=== PATIENT | female | born 1975 | race Caucasian/White ===

== ENCOUNTER 2020-06-07 19:38 | Emergency (ER) | payer OTHER ==
[2020-06-07 20:38] LABS: Absolute Lymphocytes (CBC) 1.7 K/uL (0.7-4.9); Basophils % 0.6 % (0-1.3); Hematocrit 38.9 % (36.0-45.0); Lymphocytes % 26.9 % (15.3-44.8); RBC Red Blood Cell Count 4.25 M/uL (3.86-4.86)
[2020-06-07 20:44] LABS: Albumin 3.7 g/dL (3.4-5.0); Bilirubin Direct 0.3 mg/dL (0-0.2); Bilirubin Total 1.3 mg/dL (0.2-1.0); Potassium 3.8 mmol/L (3.5-5.1); Protein, Total 7.2 g/dL (6.4-8.2)
[2020-06-07] MEDS ORDERED: ONDANSETRON 4 MG/2 ML VIAL ONE (21:12)
[2020-06-07] MEDS ORDERED: NA CHLORIDE 0.9% 1,000 ML ONE (21:12)
[2020-06-07] MEDS ORDERED: FENTANYL CITR 100 MCG/2 ML ONE (21:12)
[2020-06-07] MEDS ORDERED: KETOROLAC 30 MG/ML INJ ONE (21:35)
[2020-06-07 21:57] LABS: Calcium Oxalate Crystals- Ur FEW (NONE SEEN); Urine Bacteria 20-50 /HPF (<20); Urine Culture Reflex Order REFLEXED; Urine Mucus 3+ /HPF (NONE SEEN); Urine RBC <5 /HPF (NONE SEEN)
[2020-06-07 21:58] LABS: Urine Blood NEGATIVE (NEG); Urine Glucose NEGATIVE (NEG); Urine Protein NEGATIVE (NEG); Urine Specific Gravity 1.025 (1.005-1.030); Urine pH 5.5 (5.0-7.0)
--- NOTE | 2020-06-07 22:57 | ER ---
Nurse's Notes [facility] Name: Josee Recio Age: 44 yrs Sex: Female : 1975 Arrival Date: 06/07/2020 Time: 19:43 Bed 18 Private MD: Diagnosis: Low back pain Presentation: 06/07 19:47 Chief complaint: Patient states: Low back pain (right side) for 1 week. + flank pain. + ll1 nausea, no fever. Gastric sleeve done 05/25. After eating or drinking, feels a burning pain in LLQ. Coronavirus screen: Client denies travel out of the [place] in the last 14 days. At this time, the client does not indicate any symptoms associated with coronavirus-19. Ebola Screen: Patient denies travel to an Ebola-affected area in the 21 days before illness onset. Initial Sepsis Screen: Does the patient meet any 2 criteria? No. Patient's initial sepsis screen is negative. Risk Assessment: Do you want to hurt yourself or someone else? Patient reports no desire to harm self or others. Onset of symptoms was May 31, 2020. 19:47 Method Of Arrival: Ambulatory ll1 19:47 Acuity: KEVIN 3 ll1 23:28 Initial Sepsis Screen: Does the patient have a suspected source of infection? No. ll2 Patient's initial sepsis screen is negative. 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 - Social history:: Smoking status: Patient denies any tobacco usage or history of. Screenin:25 Abuse screen: Denies threats or abuse. Nutritional screening: No deficits noted. ll2 Tuberculosis screening: No symptoms or risk factors identified. Fall Risk IV access (20 points). Ambulatory Aid- None/Bed Rest/Nurse Assist (0 pts). Gait- Normal/Bed Rest/Wheelchair (0 pts) Mental Status- Oriented to own ability (0 pts). Total Tucker Fall Scale indicates No Risk (0-24 pts). Assessment: 20:15 General: Appears in no apparent distress. Behavior is calm, cooperative, appropriate ll2 for age. Pain: Complains of pain in right low back Pain currently is 8 out of 10 on a pain scale. Quality of pain is described as aching, crampy, Pain began 2-3 days ago. Neuro: Level of Consciousness is awake, alert, obeys commands, Oriented to person, place, time, situation. Respiratory: Airway is patent Respiratory effort is even, unlabored, Respiratory pattern is regular, symmetrical. GI: Bowel sounds present X 4 quads. Bruits are absent. Abd is soft and non tender. 20:15 Cardiovascular: Capillary refill < 3 seconds Patient's skin is warm and dry. : Denies ll2 burning with urination, urinary frequency. EENT: No signs and/or symptoms were reported regarding the EENT system. Derm: Skin is intact, is healthy with good turgor, Skin is dry, Skin is pink, warm \T\ dry. Skin temperature is warm. Musculoskeletal: Circulation, motion, and sensation intact. Range of motion: intact in all extremities. 22:23 Reassessment: No changes from previously documented assessment. Patient and/or family ll2 updated on plan of care and expected duration. Pain level reassessed. Patient is alert, oriented x 3, equal unlabored respirations, skin warm/dry/pink. Vital Signs: 19:47 BP 110 / 74; Pulse 62; Resp 18; Temp 98.1; Pulse Ox 98% ; Pain 7/10; ll1 20:00 BP 86 / 50; Pulse 57; Resp 14; Pulse Ox 100% on R/A; ll2 21:41 BP 110 / 56; Pulse 56; Resp 15; Pulse Ox 100% on R/A; Pain 6/10; ll2 ED Course: 19:43 Patient arrived in ED. bp1 19:49 Triage completed. ll1 19:50 Arm band placed on Patient placed in an exam room, on a stretcher. ll1 19:55 Rui Flood PA is PHCP. cp 19:55 Rui Givens MD is Attending Physician. cp 20:00 Perla Aponte RN is Primary Nurse. ll2 20:15 Inserted saline lock: 20 gauge in right antecubital area, using aseptic technique. jd3 Blood collected. placed by Perla THOMPSON. 21:26 CT Stone Protocol In Process Unspecified. EDMS 22:26 Patient has correct armband on for positive identification. Bed in low position. Call ll2 light in reach. Side rails up X 1. Pulse ox on. NIBP on. Warm blanket given. 22:26 No provider procedures requiring assistance completed. ll2 22:55 US Abdomen Limited In Process Unspecified. EDMS 23:28 IV discontinued, intact, bleeding controlled, No redness/swelling at site. Pressure ll2 dressing applied. Administered Medications: 21:09 Drug: NS 0.9% 1000 ml Route: IV; Rate: 1 bolus; Site: left antecubital; ll2 23:29 Follow up: Response: No adverse reaction; IV Status: Completed infusion ll2 21:09 Not Given (Patient Refused): fentaNYL (PF) 25 mcg IVP once; RASS on ADMIN: Combtv4, ll2 Very Agttd3, Agttd2, Rstlss1, AlertClm0, Drwsy-1, Lt Sdtn-2, Mod Sdtn-3, Dp Sdtn-4, UnArsble-5 21:09 Drug: Zofran (Ondansetron) 4 mg Route: IVP; Site: left antecubital; ll2 23:29 Follow up: Response: No adverse reaction ll2 Outcome: 22:57 Discharge ordered by . cp 23:17 Patient left the ED. mw2 23:28 Discharged to home ambulatory. ll2 23:28 Condition: stable 23:28 Discharge instructions given to patient, Instructed on discharge instructions, follow up and referral plans. medication usage, Demonstrated understanding of instructions, follow-up care, medications, Prescriptions given X 2. Signatures: Dispatcher [employer] EDOH Rui Flood PA PA cp Davies, Jonathon RN RN jd3 Barbra Petty mw2 Perla Aponte RN RN ll2 Jacob Rand RN RN ll1 Yamileth Meza Corrections: (The following items were deleted from the chart) 21:38 21:35 General: Appears in no apparent distress. Behavior is calm, cooperative, ll2 appropriate for age, ll2 21:38 21:35 Pain: Complains of pain in right low back Pain currently is 8 out of 10 on a pain ll2 scale. Quality of pain is described as aching, crampy, Pain began 2-3 days ago. ll2 21:38 21:35 Neuro: Level of Consciousness is awake, alert, obeys commands, Oriented to ll2 person, place, time, situation, ll2 21:38 21:35 Cardiovascular: Capillary refill < 3 seconds Patient's skin is warm and dry. ll2 ll2 21:38 21:35 Respiratory: Airway is patent Respiratory effort is even, unlabored, Respiratory ll2 pattern is regular, symmetrical, ll2 21:38 21:35 GI: Bowel sounds present X 4 quads. Bruits are absent. Abd is soft and non tender ll2 ll2 21:38 21:35 : Denies burning with urination, urinary frequency, ll2 ll2 21:38 21:35 EENT: No signs and/or symptoms were reported regarding the EENT system. ll2 ll2 21:38 21:35 Derm: Skin is intact, is healthy with good turgor, Skin is dry, Skin is pink, ll2 warm \T\ dry. Skin temperature is warm ll2 21:38 21:35 Musculoskeletal: Circulation, motion, and sensation intact. Range of motion: ll2 intact in all extremities, ll2
--- NOTE | 2020-06-07 22:57 | EDPHYS ---
Physician Documentation [facility] Name: Josee Recio Age: 44 yrs Sex: Female : 1975 Arrival Date: 06/07/2020 Time: 19:43 Bed 18 Private MD: DAYDAY Physician Rui Givens HPI: 06/07 20:00 This 44 yrs old Female presents to ER via Ambulatory with complaints of cp Possible Kidney Stone, Abdominal Pain. 20:00 The patient presents with pain that is acute, with no known mechanism of injury. The cp symptoms are located in the right mid back. Onset: The symptoms/episode began/occurred 1 week(s) ago. 20:00 The pain radiates to the right flank. Associated signs and symptoms: Pertinent cp negatives: chest pain, constipation, dysuria, fever, headache, numbness, tingling, weakness. The problem was sustained from unknown cause. Modifying factors: the patient symptoms are aggravated by any movement. 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 - Social history:: Smoking status: Patient denies any tobacco usage or history of. ROS: 20:05 Constitutional: Negative for body aches, chills, fever, poor PO intake. cp 20:05 Eyes: Negative for injury, pain, redness, and discharge. cp 20:05 Cardiovascular: Negative for chest pain, edema, palpitations. 20:05 Respiratory: Negative for cough, shortness of breath, wheezing. 20:05 Abdomen/GI: Negative for vomiting, diarrhea, constipation. 20:05 Back: Positive for pain at rest, pain with movement, flank pain, on the right, of the right mid back. 20:05 : Negative for burning with urination, vaginal bleeding, vaginal discharge. 20:05 Skin: Negative for rash. 20:05 Neuro: Negative for altered mental status, headache, weakness. 20:05 All other systems are negative. Exam: 20:15 Head/Face: Normocephalic, atraumatic. cp 20:15 Constitutional: The patient appears in no acute distress, alert, awake, non-diaphoretic, well developed, well nourished. 20:15 Eyes: Periorbital structures: appear normal, Conjunctiva: normal, no exudate, no injection, Sclera: no appreciated abnormality, Lids and lashes: appear normal, bilaterally. 20:15 ENT: External ear(s): are unremarkable, Nose: is normal, Mouth: Lips: moist, Oral mucosa: moist, Posterior pharynx: Airway: no evidence of obstruction, patent. 20:15 Chest/axilla: Inspection: Palpation: is normal, no crepitus, no tenderness. 20:15 Cardiovascular: Rate: normal, Rhythm: regular, Edema: is not appreciated, JVD: is not appreciated. 20:15 Respiratory: the patient does not display signs of respiratory distress, Respirations: normal, no use of accessory muscles, no retractions, labored breathing, is not present, Breath sounds: are clear throughout. 20:15 Abdomen/GI: Inspection: abdomen appears normal, Bowel sounds: active, all quadrants, Palpation: soft, in all quadrants, mild abdominal tenderness, in the posterior aspect of right lateral abdomen, anterior aspect of right lateral abdomen and right upper quadrant, rebound tenderness, is not appreciated, voluntary guarding, is not appreciated, involuntary guarding, is not appreciated. 20:15 Back: ROM is painful, with rotation to the right, CVA tenderness, that is moderate, is noted on the right. 20:15 Neuro: Orientation: to person, place \T\ time. Mentation: is normal, Motor: moves all fours, strength is normal, Sensation: is normal, Gait: is steady. Vital Signs: 19:47 BP 110 / 74; Pulse 62; Resp 18; Temp 98.1; Pulse Ox 98% ; Pain 7/10; ll1 20:00 BP 86 / 50; Pulse 57; Resp 14; Pulse Ox 100% on R/A; ll2 21:41 BP 110 / 56; Pulse 56; Resp 15; Pulse Ox 100% on R/A; Pain 6/10; ll2 MDM: 19:56 Patient medically screened. eugene 22:56 ED course: Received phone report that US gallbladder negative for acute findings. cp 22:57 Data reviewed: vital signs, nurses notes, lab test result(s), radiologic studies, CT cp scan, ultrasound, and as a result, I will discharge patient. 22:57 Differential diagnosis: Cholelithiasis chronic back pain, Pyelonephritis cp Ureterolithiasis. 22:57 Counseling: I had a detailed discussion with the patient and/or guardian regarding: the cp historical points, exam findings, and any diagnostic results supporting the discharge/admit diagnosis, lab results, radiology results, to return to the emergency department if symptoms worsen or persist or if there are any questions or concerns that arise at home. 22:57 Response to treatment: VSS. Pain improved. Will discharge to home for continued cp monitoring. 06/07 19:58 Order name: Basic Metabolic Panel; Complete Time: 20:51 cp 06/07 20:51 Interpretation: Normal except: GFR 71. cp 06/07 19:58 Order name: CBC with Diff; Complete Time: 20:51 cp 06/07 19:58 Order name: Hepatic Function; Complete Time: 20:51 cp 06/07 22:35 Interpretation: Normal except: BILIT 1.3; BILID 0.3. 06/07 19:58 Order name: Lipase; Complete Time: 20:51 cp 06/07 21:48 Interpretation: Abnormal: LIP 475. cp 06/07 20:41 Order name: Urine Microscopic Only; Complete Time: 22:35 cp 06/07 22:35 Interpretation: Normal except: UBACT 20-50; SQEPI 10-20; MUCUS 3+. cp 06/07 21:17 Order name: Urine Dipstick--Ancillary (enter results); Complete Time: 22:35 mw2 06/07 19:58 Order name: IV Saline Lock; Complete Time: 20:15 cp 06/07 19:58 Order name: Labs collected and sent; Complete Time: 20:15 cp 06/07 20:52 Order name: CT Stone Protocol 06/07 21:58 Order name: Urine Culture EDNY 06/07 22:36 Order name: US Abdomen Limited 06/07 20:41 Order name: Urine Dipstick-Ancillary (obtain specimen); Complete Time: 21:13 cp 06/07 20:41 Order name: Urine Test (obtain specimen); Complete Time: 21:13 cp 06/07 21:50 Order name: PO challenge; Complete Time: 22:25 cp Administered Medications: 21:09 Drug: NS 0.9% 1000 ml Route: IV; Rate: 1 bolus; Site: left antecubital; ll2 23:29 Follow up: Response: No adverse reaction; IV Status: Completed infusion ll2 21:09 Not Given (Patient Refused): fentaNYL (PF) 25 mcg IVP once; RASS on ADMIN: Combtv4, ll2 Very Agttd3, Agttd2, Rstlss1, AlertClm0, Drwsy-1, Lt Sdtn-2, Mod Sdtn-3, Dp Sdtn-4, UnArsble-5 21:09 Drug: Zofran (Ondansetron) 4 mg Route: IVP; Site: left antecubital; ll2 23:29 Follow up: Response: No adverse reaction ll2 Disposition: 06/08 11:04 Co-signature as Attending Physician, Rui Givens MD I agree with the assessment and [facility] plan of care. Disposition: 06/07/20 22:57 Discharged to Home. Impression: Low back pain. - Condition is Stable. - Discharge Instructions: Back Pain, Adult, Back Exercises. - Prescriptions for Tramadol 50 mg Oral Tablet - take 1 tablet by ORAL route every 8 hours as needed; 12 tablet. Bactrim DS 800- 160 mg Oral Tablet - take 1 tablet by ORAL route every 12 hours for 5 days; 10 tablet. - Medication Reconciliation Form, Thank You Letter, Antibiotic Education, Prescription Opioid Use form. - Follow up: Private Physician; When: 2 - 3 days; Reason: Recheck today's complaints. - Problem is new. - Symptoms have improved. Signatures: Dispatcher [employer] EDRui Bearden MD MD cha Page, Corey, PA PA cp Isaias Stoll RN RN jBarbra Horner mw2 Perla Aponte RN RN ll2 Jacob Rand RN RN ll1 Corrections: (The following items were deleted from the chart) 06/07 23:17 22:57 06/07/2020 22:57 Discharged to Home. Impression: Low back pain. Condition is mw2 Stable. Forms are Medication Reconciliation Form, Thank You Letter, Antibiotic Education, Prescription Opioid Use. Follow up: Private Physician; When: 2 - 3 days; Reason: Recheck today's complaints. Problem is new. Symptoms have improved. cp
[2020-06-07 23:35] VITALS: TEMP 98.1
[2020-06-07 23:36] VITALS: O2SAT 100
[2020-06-07 23:37] VITALS: BP 110/56
--- NOTE | 2020-06-08 08:21 | RAD REPORT ---
EXAM DESCRIPTION: US - Abdomen Exam Limited - 06/07/2020 10:55 pm CLINICAL HISTORY: Abdominal pain. COMPARISON: None. FINDINGS: The gallbladder wall is not thickened. A gallstone is not seen. The biliary tree is normal caliber. IMPRESSION: Unremarkable gallbladder ultrasound.
--- NOTE | 2020-06-08 09:58 | RAD REPORT ---
EXAM DESCRIPTION: CT - Stone Protocol - 06/08/2020 7:02 am CLINICAL HISTORY: Right lower back pain x1 week, nausea TECHNIQUE: Contiguous axial images obtained through the abdomen and pelvis without IV contrast. Eunice nal and sagittal reformatted images were provided. This exam was performed according to our departmental dose-optimization program, which includes autom ated exposure control, adjustment of the mA and/or kV according to patient size and/or use of iterati ve reconstruction technique. COMPARISON: None available for comparison. FINDINGS: Lung bases: No focal consolidation. Small hiatal hernia. Liver: Grossly unremarkable Gallbladder and biliary system: Unremarkable Pancreas: Grossly unremarkable Spleen: Grossly unremarkable Adrenals: Unremarkable Kidneys: Left renal cysts, the largest at the lateral upper to mid pole with peripheral calcification and partially calcified septation measuring 2.8 cm. No calculi. No hydronephrosis. Bowel: Prior gastric sleeve procedure. No obstruction. No appreciable mucosal thickening. Appendix: Normal caliber appendix. No findings to suggest acute appendicitis. Urinary bladder: Decompressed Reproductive: Intrauterine device in place. No adnexal mass. Lymph nodes: No pathologically enlarged lymph nodes. Peritoneum: No focal fluid collection. No free air. Vessels: Mild atherosclerotic disease. No abdominal aortic aneurysm. Abdominal wall: Small fat-containing umbilical hernia. Bones: Mild multilevel spondylosis. No acute fracture. IMPRESSION: 1. No renal, ureteral or bladder calculi. No evidence for renal obstruction. 2. Other findings as above. Electronically signed by: Emi Mcelroy MD 06/07/2020 9:38 PM CDT Due to temporary technical issues with the PACS/Fluency reporting system, reports are being signed by the in house radiologist without review as a courtesy to ensure prompt reporting. The interpreting r adiologist is fully responsible for the content of the report.
== END 2020-06-07 23:17 | disposition home or self-care (01) ==
LOC: ER 19:38
DX: M54.5 Low back pain (principal); Z87.442 Personal history of urinary calculi; Z88.8 Allergy status to other drugs, medicaments and biological substances; Z98.84 Bariatric surgery status
CPT/HCPCS: 87088; 85025; 87086; 80048; 36415; 80076; 83690; 76377; 74176; 76705; J3010; J7030; J2405; 81003; 81015; 96361; 96374; 99284